=== PATIENT | male | born 1975 | race Caucasian/White ===

== ENCOUNTER → 2016-10-13 | Outpatient (CLI) | payer MEDICARE ==
[~2016-10-13] MED LIST: ASPI-84; BISO5TAB PO; CLR500T PO; DEXL60CA PO; DILT240C; ESCI5TAB; GARL400T13; HYDR-3820 PO; MULT-608; OMEG1CAP58; ONDA8TAB13 PO; PRAV10TA23; SUCR1TAB36 PO; TESTOSTERONE SHOTS
== END ==
LOC: RAD 10:46
PROVIDERS: ATTEND Nurse Practitioner Family
DX: M54.2 Cervicalgia (principal)

== ENCOUNTER 2017-04-26 12:57 | Outpatient (RCR) | payer MEDICARE | END 2017-04-26 13:49 | disposition home or self-care (01) | PROVIDERS: ATTEND Orthopaedic Surgery Orthopaedic Surgery of the Spine | DX: M54.12 Radiculopathy, cervical region (principal) ==

== ENCOUNTER → 2017-12-13 | Outpatient (CLI) | payer MEDICARE ==
--- NOTE | 2017-12-13 15:47 | Diagnostic Imaging Report ---
PROCEDURE: CT sinuses without contrast TECHNIQUE: Multiple contiguous axial images were obtained through the sinuses without the use of intravenous contrast. Coronal and sagittal reformations were then performed. INDICATION: Chronic sinusitis. COMPARISON: Comparison is made with prior CT from 09/28/2010. FINDINGS: The frontal sinus is clear. Ethmoid air cells show minimal mucosal thickening. The sphenoid is well aerated. Bilateral maxillary sinuses are clear apart from minimal mucosal thickening of the right maxillary sinus. No air-fluid levels are seen. Mastoids are well aerated. Ostiomeatal units are patent. No significant nasal septal deviation is seen. IMPRESSION: Minimal right maxillary sinus and ethmoid sinus mucosal disease. No findings to suggest acute sinusitis are identified. Dictated by: Dictated on workstation # [id number]
== END ==
LOC: RAD 15:13
PROVIDERS: ATTEND Otolaryngology Otolaryngology/Facial Plastic Surgery
DX: J32.8 Other chronic sinusitis (principal)
CPT/HCPCS: 70486

== ENCOUNTER → 2019-09-28 | Outpatient (CLI) | payer MEDICARE ==
[~2019-09-28] MED LIST changes: -BISO5TAB PO; +BISO5TAB3 PO
--- NOTE | 2019-09-28 15:16 | Diagnostic Imaging Report ---
PROCEDURE: CT sinuses without contrast TECHNIQUE: Multiple contiguous axial images were obtained through the sinuses without the use of intravenous contrast. Coronal and sagittal reformations were then performed. Auto Exposure Controls were utilized during the CT exam to meet ALARA standards for radiation dose reduction. INDICATION: Chronic sinusitis. Patient has had prior sinus surgeries. FINDINGS: The frontal sinus is clear. Ethmoid demonstrates mild mucosal thickening. The sphenoid sinus is clear. Bilateral maxillary sinuses appear clear. Ostiomeatal complexes are patent bilaterally. Nasal septum is midline. Mastoids are well aerated. IMPRESSION: No evidence of sinusitis. Dictated by: Dictated on workstation # [id number]
== END ==
LOC: RAD 14:32
PROVIDERS: ATTEND Family Medicine
DX: J32.9 Chronic sinusitis, unspecified (principal)
CPT/HCPCS: 70486

== ENCOUNTER → 2020-09-30 | Outpatient (CLI) | payer MEDICARE ==
[~2020-09-30] MED LIST changes: +ACHYD1T PO; -BISO5TAB3 PO; +CATHETER FLUSH 10 ML SYR IV PRN; +HOLD METFORMIN - RECEIVED CONTRAST 20 ML VIAL IV SCH; -HYDR-3820 PO; +IOHEXOL 350 MG/ML 100 ML (OMNIPAQUE 350) VIAL IV ONE; +NF-BISOP5 PO; +NS 100 ML (IVPB) BAG IV ONE
--- NOTE | 2020-09-30 13:02 | Diagnostic Imaging Report ---
EXAMINATION: CT Chest with intravenous contrast. TECHNIQUE: Multiple contiguous axial images were obtained through the chest after the uneventful administration of intravenous contrast. All CT scans use one or more of the following dose optimizing techniques: automated exposure control, MA and/or KvP adjustment based on a patient size and exam type, or iterative reconstruction. HISTORY: Cardiomegaly COMPARISON: None available. FINDINGS: There is no edema or pneumonia. No pleural effusion. No pneumothorax. No suspicious nodules. There is no axillary or supraclavicular lymphadenopathy. There is no mediastinal lymphadenopathy. Heart size is normal. There are no coronary artery calcifications. No pericardial effusion. Aorta is normal in caliber. Limited views of the upper abdomen are unremarkable. There are no suspicious osseus lesions. IMPRESSION: 1. Heart size is normal. Dictated by: Dictated on workstation # [id number]
== END ==
LOC: RAD 12:15
PROVIDERS: ATTEND Nurse Practitioner Family
DX: I51.7 Cardiomegaly (principal)
CPT/HCPCS: 71260

== ENCOUNTER 2020-11-08 17:16 | Emergency (ER) | payer MEDICARE ==
[~2020-11-08] VITALS: Ht 170 cm; Wt 91.0 kg
[~2020-11-08 17:16] MED LIST changes: -CATHETER FLUSH 10 ML SYR IV PRN; -HOLD METFORMIN - RECEIVED CONTRAST 20 ML VIAL IV SCH; -IOHEXOL 350 MG/ML 100 ML (OMNIPAQUE 350) VIAL IV ONE; -NS 100 ML (IVPB) BAG IV ONE
--- NOTE | 2020-11-08 18:05 | ED Cough/URI ---
General Chief Complaint: Cough/Cold/Flu Symptoms Stated Complaint: COUGH/CHEST TIGHTNESS Source: patient Exam Limitations: no limitations History of Present Illness Date Seen by Provider: Nov 08, 2020 Time Seen by Provider: 17:42 Initial Comments This is a 45 yo male who presented via POV with complaints of chronic cough since July of 2020. States he called his PCP office to get something for his cough and was told he needed to be evaluated before they could prescribe him anything. Currently has no complaints other than his cough and some pain in his chest/ribs whenever he coughs. Adamant that he is not having "heart" pain just musculoskeletal pain from the persistent coughing. No fevers, chills, shortness of breath, chest pain, nausea/vomiting, diarrhea. Has not taken anything over the counter for his cough because of his high blood pressure. Allergies and Home Medications Allergies Coded Allergies: Penicillins (Unverified Allergy, Mild, 01/05/10) cephalexin (Unverified Allergy, Mild, 01/05/10) levofloxacin (Unverified Allergy, Mild, 01/05/10) prochlorperazine (Unverified Allergy, Mild, 01/05/10) Home Medications Bisoprolol Fumarate 5 Mg Tablet, 2.5 MG PO BID, (Reported) Dexlansoprazole 60 Mg , 60 MG PO DAILY, (Reported) Hydrocodone Bit/Acetaminophen 1 Each Tablet, 1 EACH PO QID PRN for PAIN, (Reported) Sucralfate 1 Gm Tablet, 1 GM PO QID, (Reported) Patient Home Medication List Home Medication List Reviewed: Yes Review of Systems Review of Systems Constitutional: see HPI EENTM: no symptoms reported Respiratory: see HPI Cardiovascular: no symptoms reported Gastrointestinal: no symptoms reported Genitourinary: no symptoms reported Musculoskeletal: see HPI Skin: no symptoms reported Psychiatric/Neurological: No Symptoms Reported Hematologic/Lymphatic: No Symptoms Reported Immunological/Allergic: no symptoms reported Past Fnpzawj-Xoyqjg-Qjmnnn Hx Seasonal Allergies Seasonal Allergies: Yes Past Medical History Orthopedic Hypertension Gastroesophageal Reflux Chronic Back Pain Family Medical History No Pertinent Family Hx Physical Exam Vital Signs - First Documented 11/08/20 17:37 Temp 36.4 Pulse 84 Resp 18 B/P (MAP) 140/101 (114) Pulse Ox 97 Capillary Refill : Height: 5'8.00" Weight: 190lbs. 0.0oz. 86.065465ti; BMI Method:Stated General Appearance: WD/WN, no apparent distress HEENT: PERRL/EOMI, normal ENT inspection, TMs normal, pharynx normal Neck: non-tender, full range of motion, supple, normal inspection Respiratory: chest non-tender (to palpation ), lungs clear, normal breath sounds, no respiratory distress, no accessory muscle use Cardiovascular: normal peripheral pulses, regular rate, rhythm, no edema, no gallop Gastrointestinal: normal bowel sounds, non tender, soft Extremities: normal range of motion, non-tender, normal inspection Neurologic/Psychiatric: no motor/sensory deficits, alert, normal mood/affect, oriented x 3 Skin: normal color, warm/dry Progress/Results/Core Measures Suspected Sepsis SIRS Temperature: Pulse: Respiratory Rate: Blood Pressure / Mean: Results/Orders Lab Results Laboratory Tests Test 11/08/20 17:40 Range/Units Coronavirus 2019 ([facility]) Positive H Negative My Orders Orders - BRIAN SAWYER APRN Ekg Tracing (11/08/20 17:32) Covid 19 Inhouse Test (11/08/20 17:49) Chest 1 View, Ap/Pa Only (11/08/20 17:49) Vital Signs/I&O 11/08/20 11/08/20 17:37 18:42 Temp 36.4 Pulse 84 72 Resp 18 18 B/P (MAP) 140/101 (114) 132/88 (114) Pulse Ox 97 97 Capillary Refill : Progress Note : Progress Note Pt examined and in no distress. Orders placed for COVID and chest x-ray. COVID test is positive and CXR clear. He is currently finishing up a round of Z-pack and had steroid inject a few days ago. Discussed isolation procedure and using Cordicidin OTC for cough. Reviewed discharge POC and he is agreeable with plan. Diagnostic Imaging Diagonstic Imaging: Xray Plain Films/CT/US/NM/MRI: chest Comments NAME: LYRIC HAMILTON MED REC#: [id number] PT STATUS: DEP ER : 1975 PHYSICIAN: BRIAN SAWYER APRN ADMIT DATE: 11/08/20/ER Signed Date of Exam:02/23/21 CHEST 1 VIEW, AP/PA ONLY INDICATION: Cough COMPARISON: 07/27/2015 FINDINGS: Single view of the chest demonstrates clear lungs bilaterally. The heart is normal. There is no pneumothorax. The osseous structures are age-appropriate. IMPRESSION: Negative chest Dictated by: Dictated on workstation # [id number] Dict: 11/08/201808 Trans: 11/08/202113 [facility] [id number] Interpreted by: SUKUMAR ÁLVAREZ Electronically signed by: SUKUMAR ÁLVAREZ 11/08/202113 Reviewed: Reviewed by Me Departure Impression Primary Impression: Cough Additional Impression: COVID-19 Disposition: HOME, SELF-CARE Condition: Unchanged Departure-Patient Inst. Decision time for Depature: 18:17 Referrals: HERMILO MONTENEGRO MD (PCP/Family) Primary Care Physician Patient Instructions: Coronavirus Disease 2019 (COVID-19) Overview Add. Discharge Instructions: Plan: 1. Discharge home. 2. Isolate at home until you have been cleared by the [facility] Department. 3. May use Coricidin as directed and needed for persistent cough. 4. Follow up with Dr. Montenegro if cough persist. 5. Return to ER for any new or concerning symptoms. All discharge instructions reviewed with patient and/or family. Voiced understanding. Copy Copies To 2: [facility] Nov 08, 2020 18:05
--- NOTE | 2020-11-08 18:16 | Diagnostic Imaging Report ---
INDICATION: Cough COMPARISON: 07/27/2015 FINDINGS: Single view of the chest demonstrates clear lungs bilaterally. The heart is normal. There is no pneumothorax. The osseous structures are age-appropriate. IMPRESSION: Negative chest Dictated by: Dictated on workstation # [id number]
[2020-11-08 18:42] VITALS: BP 132/88
== END 2020-11-08 18:42 | disposition home or self-care (01) ==
LOC: EDUNIT# 17:16 → ER 17:17
DX: U07.1 COVID-19 (principal); K21.9 Gastro-esophageal reflux disease without esophagitis; G89.29 Other chronic pain; M54.9 Dorsalgia, unspecified; I10 Essential (primary) hypertension; Z88.1 Allergy status to other antibiotic agents; Z88.0 Allergy status to penicillin; Z88.8 Allergy status to other drugs, medicaments and biological substances; Z79.891 Long term (current) use of opiate analgesic
CPT/HCPCS: 71045; 93005; 99283; U0002; 87635

== ENCOUNTER → 2022-01-08 | Outpatient (CLI) | payer MEDICARE ==
--- NOTE | 2022-01-08 15:51 | Diagnostic Imaging Report ---
PROCEDURE: CT sinuses without contrast TECHNIQUE: Multiple contiguous axial images were obtained through the sinuses without the use of intravenous contrast. Coronal and sagittal reformations were then performed. Auto Exposure Controls were utilized during the CT exam to meet ALARA standards for radiation dose reduction. INDICATION: Sinus pressure. COMPARISON: 09/28/2019. FINDINGS: There is mild rightward bowing of the nasal septum. Ostiomeatal complexes are patent bilaterally. There is opacification of several left ethmoid air cells. No paranasal sinus air-fluid levels identified. There is no evidence of adverse change. IMPRESSION: Minimal left ethmoid air cell opacification without evidence of acute sinusitis or adverse change. Dictated by: Dictated on workstation # [id number]
== END ==
LOC: RAD 14:54
PROVIDERS: ATTEND Nurse Practitioner Family
DX: G93.5 Compression of brain (principal)
CPT/HCPCS: 70486